=== PATIENT | male | born 1980 | race Caucasian/White ===

== ENCOUNTER 2017-11-27 10:35 | Outpatient (CLI) | payer OTHER ==
[2017-11-27] MEDS ORDERED: ISOVUE-370 76%-LOCM 1 ML ONE (14:50)
== END 2017-11-27 10:36 | disposition home or self-care (01) ==
LOC: BICCT 10:35
PROVIDERS: ATTEND Family Medicine
DX: E27.9 Disorder of adrenal gland, unspecified (principal); D35.02 Benign neoplasm of left adrenal gland
CPT/HCPCS: 74170